=== PATIENT | male | born 1990 | race Caucasian/White ===

== ENCOUNTER 2018-08-06 16:12 | Emergency (ER) | payer MEDICAID ==
[~2018-08-06] VITALS: Ht 172.7 cm; Wt 77.1 kg
[2018-08-06 16:38] VITALS: Ht 172.7 cm; Wt 77.1 kg
[2018-08-06 17:46] VITALS: BP 135/79
== END 2018-08-06 17:46 | disposition home or self-care (01) ==
LOC: ED 16:12
DX: S40.862A Insect bite (nonvenomous) of left upper arm, initial encounter (principal); W57.XXXA Bitten or stung by nonvenomous insect and other nonvenomous arthropods, initial encounter; Y93.89 Activity, other specified; Y92.89 Other specified places as the place of occurrence of the external cause; Y99.8 Other external cause status